=== PATIENT | male | born 1995 | race Caucasian/White ===

== ENCOUNTER 2019-03-01 23:05 | Emergency (ER) | payer OTHER ==
[~2019-03-01] VITALS: Ht 188 cm; Wt 72.6 kg
[2019-03-01 23:10] VITALS: BP_SYST 142
--- NOTE | 2019-03-01 23:18 | NUR ---
Placed in room 7 . Placed on spanish translator, blood pressure machine and pulse oximeter. To gown for exam. Side rails up W/ seizure precaution. Report given to LUIS MANUEL GARCIA.
--- NOTE | 2019-03-01 23:20 | NUR ---
Note undone in EDM - 03/01/19 at 2353 by [email or web address] Pt presents to ER with roommate with c/o seizure. Pt A&Ox4. Pt roommate states him and patient ate edible marijuana at approximately 2030. Pt roommate states pt started to have a "coughing fit" at 2230 that lasted 30 seconds. Pt roommate states the pt then stated he did not feel well and got up to go lay down in bed. Pt roommate states once pt got to bed, "he lost color in face and his legs started to shake with a light tremor, nothing really big." Pt roommate states "he was going in and out of presence." Pt states his fingertips got cold and he lost feeling in legs and ears. Pt states he takes anti epileptic medications every night at 2230. Pt states he took the anti epileptic medication after he became alert. Pt states medication was levetircem but does not remember the dose. Will continue to monitor.
--- NOTE | 2019-03-01 23:25 | NUR ---
# 20 gauge angiocath placed to L Forearm. Use of asceptic technique. Opsite placed over site. Blood return noted. Flushed with 10 cc of normal saline. No evidence of infiltration noted. Patient tolerated well.
[2019-03-01 23:56] LABS: BASOPHILS # (AUTO) 0.1 K/uL (0.0-0.2); BASOPHILS % (AUTO) 0.8 % (0.0-2.0); EOSINOPHILS # (AUTO) 0.1 K/uL (0.0-0.4); EOSINOPHILS % (AUTO) 1.8 % (0.0-4.0); HEMATOCRIT 43.5 % (36-54); HEMOGLOBIN 15.1 g/dL (14.0-18.0); LYMPHOCYTES # (AUTO) 2.4 K/uL (1.0-5.5); MEAN CORPUSCULAR HEMOGLOBIN 31 pg (27-31); MEAN CORPUSCULAR HGB CONC 35 % (32-36); MEAN CORPUSCULAR VOLUME 89 fL (79.0-98.0); MONOCYTES # (AUTO) 0.5 K/uL (0.0-1.0); MONOCYTES % (AUTO) 6.7 % (1.7-9.3); NEUTROPHILS # (AUTO) 3.7 K/uL (1.8-7.7); NEUTROPHILS % (AUTO) 54.7 % (40.0-70.0); PLATELET COUNT (AUTO) 223 K/uL (130-430); RED BLOOD CELL COUNT(AUTO) 4.91 MIL/uL (4.2-6.2); RED CELL DISTRIBUTION WIDTH 13.5 % (9.0-15.0); WHITE BLOOD COUNT (AUTO) 6.7 K/uL (4.8-10.8)
[2019-03-02] LABS: CALCIUM 8.1 mg/dL (8.4-11.0); CREATININE 1.02 mg/dL (0.55-1.30); POTASSIUM 3.6 mmol/L (3.5-5.1)
--- NOTE | 2019-03-02 | NUR ---
ER Dr. Reyes at bedside examining patient.
[2019-03-02 00:05] LABS: ALBUMIN 4.4 g/dL (3.4-4.8); TOTAL BILIRUBIN 0.5 mg/dL (0.0-1.0)
--- NOTE | 2019-03-02 01:05 | NUR ---
Urine was collected and sent to lab.
--- NOTE | 2019-03-02 01:06 | NUR ---
Patient went to radiology in stable condition.
--- NOTE | 2019-03-02 01:16 | NUR ---
Patient returned from radiology in stable condition.
[2019-03-02] MEDS ORDERED: NACL 0.9% 1,000 ML IV ONE ×2 (01:45)
[2019-03-02 01:59] LABS: BARBITURATE, URINE NEGATIVE (NEG <=200); BENZODIAZEPINE, URINE NEGATIVE (NEG <=150); CANNABINOID, URINE POSITIVE (NEG <=50); COCAINE, URINE NEGATIVE (NEG <=150); METHAMPHETAMINES SCREEN,URINE NEGATIVE (NEG <=500); OPIATE, URINE NEGATIVE (NEG <=100); PHENCYCLIDINE SCREEN,URINE NEGATIVE (NEG <=25); UR TRICYCLIC ANTIDEPRESSANTS NEGATIVE (NEG <=300); URINE AMPHETAMINE NEGATIVE (NEG <=500); URINE METHADONE NEGATIVE (NEG <=200); URINE OXYCODONE SCREEN NEGATIVE (NEG <=100); URINE PROPOXYPHENE SCREEN NEGATIVE (NEG <=300)
--- NOTE | 2019-03-02 02:04 | NUR ---
Pt sleeping in bed with no complaints. Will continue to monitor.
[2019-03-02 02:45] VITALS: BP_SYST 118
--- NOTE | 2019-03-02 02:45 | NUR ---
Patient given written and verbal discharge instructions and verbalizes understanding. ER MD Reyes discussed with patient the results and treatment provided. Patient in stable condition. ID arm band removed. IV catheter removed intact and dressing applied, no active bleeding. No Rx given. Patient educated on pain management and to follow up with PMD. Pain Scale 0/10. Opportunity for questions provided and answered.
== END 2019-03-02 02:45 | disposition home or self-care (01) ==
LOC: SED 23:05
DX: F12.90 Cannabis use, unspecified, uncomplicated (principal); R56.9 Unspecified convulsions
CPT/HCPCS: 36415; 70450; 80053; 80307; 85025; 93005; 99284; G0482; J7030 ×2